=== PATIENT | female | born 1955 | race Caucasian/White ===

== ENCOUNTER 2023-11-27 09:09 | Emergency (ER) | payer OTHER ==
--- NOTE | 2023-11-27 11:00 | RAD REPORT ---
EXAM DESCRIPTION: RAD - Chest Single View - 11/27/2023 10:52 am CLINICAL HISTORY: CHEST PAIN Chest pain. COMPARISON: No comparisons FINDINGS: Portable technique limits examination quality. The lungs are grossly clear. The heart is normal in size. No displaced fractures. IMPRESSION: No acute intrathoracic process suspected.
[2023-11-27 11:04] LABS: Absolute Basophils 0.1 K/uL (0-0.5); Absolute Eosinophils 0.4 K/uL (0-0.5); Absolute Lymphocytes (CBC) 1.5 K/uL (0.7-4.9); Absolute Monocytes 0.4 K/uL (0.1-1.3); Absolute Neutrophil 7.8 K/uL (1.8-8.0); Basophils % 0.7 % (0-1.3); Eosinophils % 3.5 % (0-4.4); Hematocrit 45.5 % (36.0-45.0); Hemoglobin 15.4 g/dL (12.0-15.0); Lymphocytes % 14.4 % (15.3-44.8); MCH 29.1 pg (27.0-35.0); MCHC 33.9 g/dL (32.0-36.0); MCV 86.1 fL (80-100); MPV 7.8 fL (7.6-11.3); Monocytes % 4.1 % (3.3-12.3); Neutrophils % 77.3 % (41.7-73.7); Nucleated RBC Absolute Count 0.1 (0-0); Nucleated Red Blood Cells % 0.4 % (0-0); Platelets 268 thou/uL (152-406); RBC Red Blood Cell Count 5.28 M/uL (3.86-4.86); Red Cell Distribution Width 13.6 % (12.1-15.2)
[2023-11-27 11:11] LABS: PT Prothrombin Time 11.3 SECONDS (9.5-12.5); PTT, Activated Partial Thromb 30.9 SECONDS (24.3-36.9); Protime INR 1.03
[2023-11-27 11:31] LABS: Albumin 3.9 g/dL (3.4-5.0); Anion Gap 8.7 mEq/L (5.0-15.0); Bilirubin Direct 0.3 mg/dL (0-0.2); Bilirubin Indirect, Calculated 0.9 mg/dL (0.2-0.8); Bilirubin Total 1.2 mg/dL (0.2-1.0); Globulin 3.8 g/dL (2.3-3.5); Potassium 3.7 mEq/L (3.5-5.1); Protein, Total 7.7 g/dL (6.4-8.2); Troponin High Sensitivity 9.8 pg/mL (<58.9)
--- NOTE | 2023-11-27 11:58 | RAD REPORT ---
EXAM DESCRIPTION: CT - Head Brain Wo Cont - 11/27/2023 11:40 am CLINICAL HISTORY: HTN, headache, vomiting COMPARISON: Angio Aorta For Dissection dated 11/27/2023 TECHNIQUE: All CT scans are performed using dose optimization technique as appropriate and may inclu de automated exposure control or mA/KV adjustment according to patient size. FINDINGS: No intracranial hemorrhage, hydrocephalus or extra-axial fluid collection.No areas of brai n edema or evidence of midline shift. The paranasal sinuses and mastoids are clear. The calvarium is intact. IMPRESSION: No acute intracranial abnormality.
--- NOTE | 2023-11-27 12:05 | RAD REPORT ---
EXAM DESCRIPTION: CT - Angio Aorta For Dissection - 11/27/2023 11:40 am CLINICAL HISTORY: Chest pain radiating to the back. HTN, Chest pain/abd pain COMPARISON: Head Brain Wo Cont dated 11/27/2023 TECHNIQUE: CT angiography of the aorta was performed with MIPs. All CT scans are performed using dose optimization technique as appropriate and may include automated exposure control or mA/KV adjustment according to patient size. FINDINGS: A left aortic arch is present with normal branching pattern of the great vessels.No acute aortic finding is seen such as aneurysm, penetrating ulcer or dissection. Mild atherosclerosis is see n of the abdominal aorta and iliac vessels. The celiac axis, SMA, AMAURI and renal arteries are patent. No evidence of pulmonary embolism. Small hiatal hernia. Rounded 15 mm mass is seen in the lateral right breast. The lungs are clear. The liver demonstrates no focal mass or biliary dilatation.Mild diffuse fatty liver.The spleen, pancr eas, adrenal glands and kidneys are within normal limits for arterial phase imaging. No bowel obstruction, free fluid or abscess.Normal appendix. Mild sigmoid diverticulosis without dive rticulitis.No pathologic enlarged lymphadenopathy identified. No fracture or worrisome bone lesion seen. Mild multilevel lumbar degenerative changes. Prominent posterior disc bulge at L4-5 and L5-S1. IMPRESSION: No acute aortic finding is demonstrated. Mild diffuse fatty liver. Incidentally noted 15 mm mass lateral right breast. Recommend nonemergent mammographic follow-up.
--- NOTE | 2023-11-27 12:07 | RAD REPORT ---
EXAM DESCRIPTION: US - Abdomen Exam Limited - 11/27/2023 11:58 am CLINICAL HISTORY: abnormal LFTs;Abd pain COMPARISON: Abdomen Exam Complete dated 05/17/2023; Angio Aorta For Dissection dated 11/27/2023 FINDINGS: The gallbladder demonstrates no gallstones. No pericholecystic fluid or gallbladder wall t hickening. The common bile duct is upper limit of normal measuring 8 mm. The liver demonstrates no findings of intrahepatic biliary dilatation. IMPRESSION: Negative gallbladder/biliary tree findings.
--- NOTE | 2023-11-27 12:21 | ER ---
Nurse's Notes [facility] Name: Janna Wing Age: 68 yrs Sex: Female : 1955 Arrival Date: 11/27/2023 Time: 09:09 Bed 18 Private MD: IRA SIM Diagnosis: Essential (primary) hypertension Presentation: 11/26 09:42 Chief complaint: Patient states: BP was running high after taking Sudafed and dayquil, iw started having hot and cold flashes and chest pain , back pain and vomiting on the way here to ER. Coronavirus screen: At this time, the client does not indicate any symptoms associated with coronavirus-19. Ebola Screen: Patient negative for fever greater than or equal to 101.5 degrees Fahrenheit, and additional compatible Ebola Virus Disease symptoms Patient denies exposure to infectious person. Patient denies travel to an Ebola-affected area in the 21 days before illness onset. No symptoms or risks identified at this time. Initial Sepsis Screen: Does the patient meet any 2 criteria? No. Patient's initial sepsis screen is negative. Does the patient have a suspected source of infection? No. Patient's initial sepsis screen is negative. Onset of symptoms was November 27, 2023. 09:42 Method Of Arrival: Ambulatory iw 09:42 Acuity: JEFFREY 3 iw 09:44 Risk Assessment: Do you want to hurt yourself or someone else? Patient reports no iw desire to harm self or others. Historical: - Allergies: 10:49 PENICILLINS; mb9 10:49 Codeine; mb9 10:49 Sulfa (Sulfonamide Antibiotics); mb9 - Home Meds: 10:49 lisinopril 20 mg Oral tablet [Active]; mb9 - PMHx: 10:49 Hypertensive disorder; fatty liver; Asthma; Fibromyalgia; mb9 - PSHx: 10:49 Ligation of fallopian tube; mb9 - Immunization history:: Adult Immunizations up to date. - Infectious Disease History:: Denies. - Social history:: Smoking status: Patient denies any tobacco usage or history of. - Family history:: not pertinent. - Hospitalizations: : No recent hospitalization is reported. Screenin:48 [facility] ED Fall Risk Assessment (Adult) History of falling in the last 3 months, mb9 including since admission No falls in past 3 months (0 pts) Confusion or Disorientation No (0 pts) Intoxicated or Sedated No (0 pts) Impaired Gait No (0 pts) Mobility Assist Device Used No (0 pt) Altered Elimination No (0 pt) Score/Fall Risk Level 0 - 2 = Low Risk Oriented to surroundings, Maintained a safe environment, Educated pt \T\ family on fall prevention, incl call for assistance when getting out of bed. Abuse screen: Denies threats or abuse. Nutritional screening: No deficits noted. Tuberculosis screening: No symptoms or risk factors identified. Assessment: 10:50 General: Appears in no apparent distress. Behavior is calm, cooperative. Pain: mb9 Complains of pain in back. Neuro: Andersen Agitation-Sedation Scale (RASS): 0 - Alert and Calm Level of Consciousness is awake, alert, obeys commands, Oriented to person, place, time, situation, Appropriate for age. Cardiovascular: Denies chest pain, Heart tones S1 S2 present Patient's skin is warm and dry. Respiratory: Airway is patent Respiratory effort is even, unlabored, Respiratory pattern is regular, symmetrical, Breath sounds are clear bilaterally. GI: Abdomen is round non-distended, Bowel sounds present X 4 quads. Abd is soft and non tender X 4 quads. Reports nausea. : No signs and/or symptoms were reported regarding the genitourinary system. EENT: No signs and/or symptoms were reported regarding the EENT system. Derm: Skin is pink, warm \T\ dry. Musculoskeletal: Range of motion: intact in all extremities. 12:02 Reassessment: No changes from previously documented assessment. Patient and/or family mb9 updated on plan of care and expected duration. Pain level reassessed. Patient is alert, oriented x 3, equal unlabored respirations, skin warm/dry/pink. Vital Signs: 09:48 BP 184 / 77; Pulse 85; Resp 18; Pulse Ox 97% on R/A; iw 11:08 BP 178 / 68; Pulse 70; Resp 18; Pulse Ox 97% on R/A; mb9 12:20 BP 175 / 72; Pulse 74; Resp 18; Pulse Ox 97% on R/A; mb9 ED Course: 09:10 Patient arrived in ED. rg4 09:10 IRA SIM is Private Physician. rg4 09:15 Brandin Rodríguez MD is Attending Physician. rn 09:44 Triage completed. iw 09:46 Majo Alan, RN is Primary Nurse. mb9 09:47 Arm band placed on. mb9 09:48 Placed in gown. Bed in low position. Call light in reach. Side rails up X 1. Provided mb9 Education on: press call light if needing anything. Client placed on continuous cardiac and pulse oximetry monitoring. NIBP monitoring applied. playground monitor on. 09:48 EKG done, by ED staff, reviewed by Brandin Rodríguez MD. mb9 10:45 Basic Metabolic Panel Sent. mb9 10:45 CBC with Diff Sent. mb9 10:45 Hepatic Function Sent. mb9 10:45 Magnesium Sent. mb9 10:45 Protime (+inr) Sent. mb9 10:45 Ptt, Activated Sent. mb9 10:45 Troponin High Sensitivity Sent. mb9 10:46 Inserted saline lock: 22 gauge in left antecubital area, using aseptic technique. mb9 10:52 No provider procedures requiring assistance completed. mb9 10:53 Chest Single View XRAY In Process Unspecified. EDMS 11:[address] via wheelchair. ap3 11:41 CT Head Brain wo Cont In Process Unspecified. EDMS 11:42 CT Aorta for Dissection In Process Unspecified. EDMS 11:50 Patient taken to ultrasound. via wheelchair. iw 12:00 US Abdomen Limited In Process Unspecified. EDMS 12:02 Patient moved back from ultrasound. mb9 12:20 IV discontinued, intact, bleeding controlled, No redness/swelling at site. Pressure mb9 dressing applied. Administered Medications: No medications were administered Medication: 09:49 VIS not applicable for this client. mb9 Outcome: 12:20 Discharge ordered by . rn 12:21 Discharged to home ambulatory, with family, mb9 12:21 Condition: stable 12:21 Discharge instructions given to patient, family, Instructed on discharge instructions, follow up and referral plans. Demonstrated understanding of instructions, follow-up care, 12:23 Patient left the ED. mb9 Signatures: Dispatcher [employer] Deirdre Abernathy, RN FLAVIA Brandin Rodríguez MD MD rn Garcia, Rubi rg4 Barbara Miner RN RN ap3 Majo Alan, RN RN mb9 Corrections: (The following items were deleted from the chart) :44 09:40 Chief complaint: iw iw
--- NOTE | 2023-11-27 12:21 | EDPHYS ---
Physician Documentation [facility] Name: Janna Wing Age: 68 yrs Sex: Female : 1955 Arrival Date: 11/27/2023 Time: 09:09 Bed 18 Private MD: IRA SIM ED Physician Brandin Rodríguez HPI: 11/26 10:52 This 68 yrs old Female presents to ER via Ambulatory with complaints of High Blood rn Pressure, Vomiting, Back Pain. 10:52 The patient has elevated blood pressure and discovered this at home. Onset: The rn symptoms/episode began/occurred today. Modifying factors: The symptoms are aggravated by Taking Sudafed. Modifying factors: The symptoms are alleviated by prescription meds, Lisinopril. Severity of symptoms: At its worst the blood pressure was moderate, in the emergency department the blood pressure is improved. The patient has experienced similar episodes in the past. Patient reports came in for high blood pressure. Has been sick with flulike illness for the last few days. Reports cough, malaise, headache, vomiting and diarrhea. Feels like she is getting over it in general. Has been taking Sudafed for the congestion and cough and thinks that is causing an elevation in her blood pressure. Prescribed lisinopril but does not take it regularly. Patient reports when blood pressure was elevated felt flushed and mild headache with nausea so came in for evaluation. Took her lisinopril prior to coming in and blood pressure is improving as well as her symptoms. No focal neurological deficit.. Historical: - Allergies: 10:49 PENICILLINS; mb9 10:49 Codeine; mb9 10:49 Sulfa (Sulfonamide Antibiotics); mb9 - Home Meds: 10:49 lisinopril 20 mg Oral tablet [Active]; mb9 - PMHx: 10:49 Hypertensive disorder; fatty liver; Asthma; Fibromyalgia; mb9 - PSHx: 10:49 Ligation of fallopian tube; mb9 - Immunization history:: Adult Immunizations up to date. - Infectious Disease History:: Denies. - Social history:: Smoking status: Patient denies any tobacco usage or history of. - Family history:: not pertinent. - Hospitalizations: : No recent hospitalization is reported. ROS: 10:52 Constitutional: Negative for fever, chills, and weight loss, Neck: Negative for injury, rn pain, and swelling, Cardiovascular: Positive for intermittent chest pain Respiratory: Positive for cough, negative for shortness of breath Abdomen/GI: Positive for nausea/vomiting/diarrhea Back: Negative for injury and pain, MS/Extremity: Negative for injury and deformity, Skin: Negative for injury, rash, and discoloration, Neuro: Positive for headache and generalized weakness Exam: 10:11 ECG was reviewed by the Attending Physician. rn 10:52 Constitutional: This is a well developed, well nourished patient who is awake, alert, rn and in no acute distress. Head/Face: Normocephalic, atraumatic. Eyes: Pupils equal round and reactive to light, extra-ocular motions intact. Neck: Trachea midline, no thyromegaly or masses palpated, and no cervical lymphadenopathy. Supple, full range of motion without nuchal rigidity, or vertebral point tenderness. No Meningismus. Cardiovascular: Regular rate and rhythm. No pulse deficits. Respiratory: No increased work of breathing, no retractions or nasal flaring. Abdomen/GI: Soft, no focal tenderness or distention MS/ Extremity: Pulses equal, no cyanosis. Neuro: Awake and alert, GCS 15, oriented to person, place, time, and situation. Cranial nerves II-XII grossly intact. Motor strength 5/5 in all extremities. Sensory grossly intact. Vital Signs: 09:48 BP 184 / 77; Pulse 85; Resp 18; Pulse Ox 97% on R/A; iw 11:08 BP 178 / 68; Pulse 70; Resp 18; Pulse Ox 97% on R/A; mb9 12:20 BP 175 / 72; Pulse 74; Resp 18; Pulse Ox 97% on R/A; mb9 MDM: 09:15 Patient medically screened. rn 12:18 Differential diagnosis: hypertensive crisis, Malignant HTN, CVA, intracerebral rn hemorrhage, aortic dissection. Differential diagnosis: medication non-compliance. Data reviewed: vital signs, nurses notes, lab test result(s). Counseling: I had a detailed discussion with the patient and/or guardian regarding the historical points, exam findings, and any diagnostic results supporting the discharge/admit diagnosis, lab results, radiology results, the need for outpatient follow up, to return to the emergency department if symptoms worsen or persist or if there are any questions or concerns that arise at home. Response to treatment: the patient's symptoms have markedly improved after treatment, and as a result, I will discharge patient. Special discussion: I discussed with the patient/guardian in detail that at this point there is no indication for admission to the hospital. It is understood, however, that if the symptoms persist or worsen the patient needs to return immediately for re-evaluation. Based on the history and exam findings, there is no indication for further emergent testing or inpatient evaluation. I discussed with the patient/guardian the need to see the machine hand for further evaluation of the symptoms. I discussed with the patient/guardian the need to see the primary care provider for further evaluation of the symptoms. ED course: No acute findings and workup today. No evidence of endorgan damage. CT aorta negative for acute findings. Did discuss incidental right breast mass with patient and family, they were aware of it and have already had mammogram, already scheduled for ultrasound of breast. Recommend to patient to take her lisinopril regularly and to avoid certain cold and cough medications. I have personally reviewed all of the results, including but not limited to blood tests and imaging deemed necessary to safely discharge this patient at this time. All results given to and printed out for patient. I personally went over all the results with the patient and answered all questions. Patient will follow-up with PCP and or specialist as discussed. Return precautions given and understood.. 11/26 09:46 Order name: Basic Metabolic Panel; Complete Time: 11:37 11/26 09:46 Order name: CBC with Diff; Complete Time: 11:11/26 09:46 Order name: Hepatic Function; Complete Time: 11:11/26 09:46 Order name: Magnesium; Complete Time: 11:11/26 09:46 Order name: Protime (+inr); Complete Time: 11:37 11/26 09:46 Order name: Ptt, Activated; Complete Time: 11:37 11/26 09:46 Order name: Troponin High Sensitivity; Complete Time: 11:37 11/26 09:46 Order name: CT Head Brain wo Cont; Complete Time: 12:11 11/26 09:46 Order name: Chest Single View XRAY; Complete Time: 11:37 11/26 09:47 Order name: CT Aorta for Dissection; Complete Time: 12:11/26 11:38 Order name: US Abdomen Limited; Complete Time: 12:11 rn 11/26 09:46 Order name: EKG; Complete Time: 09:47 rn 11/26 09:46 Order name: Cardiac monitoring; Complete Time: :47 rn 11/26 09:46 Order name: EKG - Nurse/Tech; Complete Time: 09:47 rn 11/26 09:46 Order name: IV Saline Lock; Complete Time: 10:46 rn 11/26 09:46 Order name: Labs collected and sent; Complete Time: 10:46 rn 11/26 09:46 Order name: NPO; Complete Time: :47 rn 11/26 09:46 Order name: O2 Per Protocol; Complete Time: : rn 11/26 09:46 Order name: O2 Sat Monitoring; Complete Time: : rn EC:11 Rate is 85 beats/min. Rhythm is regular. QRS [place] is Normal. [place] interval is normal. QRS rn interval is normal. QT interval is normal. No Q waves. T waves are Normal. No ST changes noted. Clinical impression: Normal ECG. Interpreted by me. Reviewed by me. Administered Medications: No medications were administered Disposition Summary: 11/27/23 12:20 Discharge Ordered Notes: Location: Home rn Problem: new rn Symptoms: have improved rn Condition: Stable rn Diagnosis - Essential (primary) hypertension rn Followup: rn - With: Private Physician - When: As needed - Reason: Recheck today's complaints, Re-evaluation by your physician Discharge Instructions: - Discharge Summary Sheet rn - Hypertension, Adult rn - Heart Disease lpn rn hospice - How to Take Your Blood Pressure, [id number] rn - Managing Your Hypertension rn Forms: - Medication Reconciliation Form rn - Thank You Letter rn - Antibiotic international logistics coordinator - Prescription Opioid Use rn - Patient Portal Instructions rn - Leadership Thank You Letter rn Signatures: Dispatcher [employer] Brandin Warner MD MD rn Breneman, Mary Beth RN RN mb9
[2023-11-27 15:45] VITALS: BP 175/72; O2SAT 97
== END 2023-11-27 12:23 | disposition home or self-care (01) ==
LOC: ER 09:09
DX: I10 Essential (primary) hypertension (principal); Z88.0 Allergy status to penicillin; Z88.2 Allergy status to sulfonamides; Z88.5 Allergy status to narcotic agent
CPT/HCPCS: 36415; 70450; 71045; 71275; 74175; 76705; 80048; 80076; 83735; 84484; 85025; 85610; 85730; 93005; 99285